=== PATIENT | male | born 1990 | race Caucasian/White ===

== ENCOUNTER → 2020-05-30 | Outpatient (REF) | payer OTHER ==
[~2020-05-30] MED LIST: ACET-841 PO; GOOD200C PO; IBUP80TA PO
== END ==
LOC: M LAB REF 13:14
PROVIDERS: ATTEND Nurse Practitioner Family
DX: J02.9 Acute pharyngitis, unspecified (principal)

== ENCOUNTER 2020-05-31 23:36 | Emergency (ER) | payer OTHER ==
[~2020-05-31] VITALS: Ht 177.8 cm; Wt 98.4 kg
[2020-05-31] MEDS ORDERED: ACET-841 PO (23:47)
[2020-05-31] MEDS ORDERED: IBUP80TA PO (23:47)
[2020-05-31] MEDS ORDERED: GOOD200C PO (23:48)
[2020-06-01] MEDS ORDERED: MAGIC MOUTHWASH SUSPENSION BTL SS STA (00:15)
[2020-06-01] MEDS ORDERED: KETOROLAC 30 MG/ML 1ML VIAL IV ONE (00:15)
[2020-06-01] MEDS ORDERED: KETOROLAC 30 MG/ML 1ML VIAL As Ordered ONE (00:21)
[2020-06-01 00:45] LABS: BASO # 0.1 10^3/uL (0.0-0.2); BASO % 0.4 % (0.0-1.0); EOS # 0.2 10^3/uL (0.0-0.5); EOS % 1.2 % (0.0-3.0); HEMATOCRIT 40.9 % (42.0-52.0); HEMOGLOBIN 13.6 g/dl (13.5-17.5); LYMPH # 1.9 10^3/uL (1.5-5.0); MEAN CORPUSCULAR HEMOGLOBIN 30.5 pg (27.0-33.0); MEAN CORPUSCULAR HGB CONC 33.3 g/dl (32.0-36.5); MEAN CORPUSCULAR VOLUME 91.7 fl (80.0-96.0); MONO # 1.5 10^3/uL (0.0-0.8); MONO % 10.4 % (0.0-5.0); NEUTROPHILS # 10.9 10^3/uL (1.5-8.5); NEUTROPHILS % 74.2 % (36.0-66.0); PLATELET COUNT, AUTOMATED 150 10^3/uL (150-450); RED BLOOD COUNT 4.46 10^6/uL (4.30-6.10); WHITE BLOOD COUNT 14.7 10^3/uL (4.0-10.0)
[2020-06-01 01:02] LABS: MONO REFLEX EBV COMP NEGATIVE (NEGATIVE)
[2020-06-01] MEDS ORDERED: ISOVUE-370 76% 100ML VIAL As Ordered ONE (01:31)
[2020-06-01 02:06] LABS: RSV AMPLIFICATION NEGATIVE (NEGATIVE)
[2020-06-01] MEDS ORDERED: BICILLIN L-A 2,400,000 UNIT/4 ML SYRINGE (J0561-24)PENICILLIN G BENZATINE IM ONE (02:15)
[2020-06-01] MEDS ORDERED: dexameTHASONE 20MG/5ML VIAL (J1100 PER 1MG) IV ONE (02:15)
--- NOTE | 2020-06-01 02:41 | REPVR ---
PROCEDURE INFORMATION: Exam: CT Neck With Contrast Exam date and time: 06/01/2020 2:21 AM Age: 29 years old Clinical indication: Neck pain; Additional info: Swollen R side neck and tonsil, fever, elevated wbc, neg strep TECHNIQUE: Imaging protocol: Computed tomography images of the neck with intravenous contrast. Radiation optimization: All CT scans at this facility use at least one of these dose optimization techniques: automated exposure control; mA and/or kV adjustment per patient size (includes targeted exams where dose is matched to clinical indication); or iterative reconstruction. Contrast material: ISO 370; Contrast volume: 75 ml; Contrast route: INTRAVENOUS (IV); COMPARISON: No relevant prior studies available. FINDINGS: Orbital cavity: The globes and orbits are intact and normal in appearance. Mastoid air cells: Clear. Auditory system: The middle ear spaces are clear. Paranasal sinuses: The imaged portions of the sinuses are well-aerated. No air-fluid levels are noted in the sinuses. Nasal cavity: The nasal septum is deviated to the right of midline and there is a nasal septal spur projecting to the right of midline. Nasopharynx: Unremarkable. Oral Cavity: Unremarkable. Dental: No dental caries or periapical abscess are noted. Oropharynx: There is a striated pattern of enhancement and moderate enlargement of both palatine tonsils, which is compatible with tonsillitis. No tonsillar or peritonsillar abscess is noted. Hypopharynx: Unremarkable. Larynx: Unremarkable. No swelling of the epiglottis. No mass. Retropharyngeal space: Unremarkable. No retropharyngeal edema or fluid collection. Submandibular/Parotid glands: Unremarkable. Thyroid: Unremarkable. Lymph nodes: There is left level 1A, left level 1B, bilateral level 2A, and right level 2B cervical lymphadenopathy. Trachea: Unremarkable. Lungs: There is a 4 mm juxtapleural nodule along the posterior aspect of the right lung apex (image 81 of the axial series 201), for which follow-up is not necessary. The lungs were not fully imaged. Incidental note is made of an azygos fissure. Bones/joints: There is no fracture or dislocation. No suspicious osteolytic or osteoblastic lesion. Vasculature: The vertebral arteries, common carotid arteries, internal carotid arteries, and external carotid arteries are patent and there is no dissection. The internal jugular veins are patent. Soft tissues: Unremarkable. No soft tissue swelling or fluid collection is noted. IMPRESSION: 1. Bilateral palatine tonsillitis. No tonsillar or peritonsillar abscess or retropharyngeal abscess. 2. Left level 1A, left level 1B, bilateral level 2A, and right level 2B cervical lymphadenopathy. Electronically signed by: Rowdy Meza On 06/01/2020 02:41:36 AM
[2020-06-01 03:00] VITALS: BP 156/84
[2020-06-02 13:12] LABS: EBV VIRAL CAPSID AG IgG >600.0 U/mL (0.0-17.9); EBV VIRAL CAPSID AG IgM <36.0 U/mL (0.0-35.9)
== END 2020-06-01 03:03 | disposition home or self-care (01) ==
LOC: M ED 23:36
DX: J02.9 Acute pharyngitis, unspecified (principal); F17.200 Nicotine dependence, unspecified, uncomplicated
CPT/HCPCS: 70491; 80047; 85025; 86308; 86664; 86665; 87631; 87880; 96372; 96374; 96375; 99284; J0561; J1100; J1885; Q9967